=== PATIENT | female | born 1990 | race Caucasian/White ===

== ENCOUNTER 2023-04-22 15:03 | Outpatient (CLI) | payer OTHER, SELFPAY | END 2023-04-22 15:04 | disposition home or self-care (01) | LOC: NFLDREF 04-24 06:53 | PROVIDERS: Visit Provider Advanced Practice Midwife | DX: Z34.91 Encounter for supervision of normal pregnancy, unspecified, first trimester (principal); Z3A.08 8 weeks gestation of pregnancy | CPT/HCPCS: 76817; 84443; 86592; 86703; 86762; 86787; 86803; 86850; 86900; 86901; 87086; 87340 ==

== ENCOUNTER 2023-05-15 10:02 | Outpatient (CLI) | payer OTHER, SELFPAY | END 2023-05-15 10:03 | disposition home or self-care (01) | LOC: NFLDREF 05-16 10:54 | PROVIDERS: Visit Provider Advanced Practice Midwife | DX: Z34.01 Encounter for supervision of normal first pregnancy, first trimester (principal) | CPT/HCPCS: 87491; 87591 ==

== ENCOUNTER 2023-09-06 08:30 | Outpatient (CLI) | payer OTHER, SELFPAY | END 2023-09-06 08:31 | disposition home or self-care (01) | LOC: NFLDREF 09-13 09:18 | PROVIDERS: Visit Provider Advanced Practice Midwife | DX: Z34.90 Encounter for supervision of normal pregnancy, unspecified, unspecified trimester (principal) | CPT/HCPCS: 86592 ==

== ENCOUNTER 2023-10-02 07:21 | Outpatient (CLI) | payer OTHER, SELFPAY ==
--- NOTE | 2023-10-02 07:15 | CRLHL7_ITS ---
For Patients: As a result of the Century Cures Act, medical imaging exams and procedure reports are released immediately into your electronic medical record. You may view this report before your referring provider. If you have questions, please contact your health care provider. INDICATION: TECHNIQUE: Real time briseno scale imaging of the fetus was performed. COMPARISON: 04/22/2023 FINDINGS: Sonographic imaging demonstrates a single living intrauterine gestation. Fetus demonstrates a regular cardiac rate of 166 beats per minute. Fetus has a vertex position. The placenta lies anteriorly. Amniotic fluid volume appears normal and there is a single deepest pocket of 5.2 cm. The estimated weight is 2469gm which lies at the greater than 97th %. BPD 92nd percentile. HC 87th percentile. AC greater than 97th percentile. FL 15th percentile. The fetus was active and demonstrated normal breathing movements. There was normal flexion and extension of the trunk and extremities. IMPRESSION: Normal biophysical profile score 8/8. Sonographic gestational age 34 weeks 1 day and sonographic due date of 11/12/2023. Sonographic age 15 days ahead of the clinical age. Estimated weight greater than 97th percentile. Abdominal circumference greater than 97th percentile. Dictated by Reggie Mehta MD @ 10/02/2023 12:06:57 PM (Electronically Signed)
== END 2023-10-02 07:22 | disposition home or self-care (01) ==
LOC: US 07:22
PROVIDERS: Visit Provider Advanced Practice Midwife
DX: Z34.93 Encounter for supervision of normal pregnancy, unspecified, third trimester (principal); O36.63X0 Maternal care for excessive fetal growth, third trimester, not applicable or unspecified; Z3A.34 34 weeks gestation of pregnancy
CPT/HCPCS: 76816; 76819

== ENCOUNTER 2023-10-18 09:58 | Outpatient (CLI) | payer OTHER, SELFPAY ==
[2023-10-18] VITALS (22 sets, daily range): BP systolic 124–141; BP diastolic 61–79; PULSE 56–73; RESP 18; TEMP 37; O2SAT 93–98
[2023-10-18 11:24] LABS: Hematocrit 35.6 % (33.0-51.0); Hemoglobin* 11.9 gm/dL (12.0-16.0); Mean Corpuscular HGB Conc 33 gm/dL (32-36); Mean Corpuscular Hemoglobin 30 pg (26-34); Mean Corpuscular Volume 91 fL (80-100); Platelet Count* 231 K/uL (140-440); Red Blood Count 3.91 m/uL (4.00-5.20); White Blood Count* 9.64 K/uL (4.50-11.00)
[2023-10-18 11:44] LABS: Alanine Aminotransferase* 14 U/L (4-35); Aspartate Amino Transferase* 22 U/L (12-35); Creatinine* 0.5 mg/dL (0.5-1.5); Estimated Glomerular Filt Rate 125 ml/min; Slide Review Reflex No
[2023-10-18 12:01] LABS: Total Protein Urine 16 mg/dL
--- NOTE | 2023-10-18 12:36 | PM.OBLDTN ---
OB - Triage/Final Diagnosis Visit Information Date Seen: 10/18/23 Date of evaluation: 10/18/23 Narrative: The patient is a 33 year old 1 para 0 at 34.2 weeks gestation by LMP, who was seen in clinic today and sent to triage for further blood pressure monitoring for a BP of 140/86. In triage blood pressures were running 130/70's. Baseline preeclampsia labs all WNL except for TP ratio was 0.3. Diagnosed with preeclampsia without severe features at this time. Denies HOUGH, visual changes or abdominal pain today. Discussed diagnosis with patient and and plan moving forward. Will start biweekly testing next week and recommendation is induction of labor at 37.0 weeks as long as her blood pressure and lab work remains stable. Reviewed blood pressure parameters and s/s of preeclampsia to report. Patient will be sent home with a home blood pressure cuff as well. Questions answered, patient is agreeable to the plan of care. Reactive NST FHR 130, + accelerations, - decelerations, rare contractions. Reason for evaluation: other Evaluation Laboratory results: Laboratory Tests 10/18/23 10/18/23 Range/Units 11:30 11:17 WBC 9.64 (4.50-11.00) K/uL RBC 3.91 L (4.00-5.20) m/uL Hgb 11.9 L (12.0-16.0) gm/dL Hct 35.6 (33.0-51.0) % MCV 91 (80-100) fL MCH 30 (26-34) pg MCHC 33 (32-36) gm/dL Plt Count 231 (140-440) K/uL Creatinine 0.5 (0.5-1.5) mg/dL Estimated GFR 125 ml/min AST 22 (12-35) U/L ALT 14 (4-35) U/L Urine Creatinine 48.0 mg/dL Protein/Creatinin Ratio 0.30 H (0-0.19) Urine Total Protein 16 mg/dL Vital signs: Vital Signs - 24 hr 10/18/23 10:10 10/18/23 10:15 10/18/23 10:20 Temperature Pulse Rate Respiratory Rate Blood Pressure Pulse Oximetry 98 98 98 10/18/23 10:25 10/18/23 10:30 10/18/23 10:30 Temperature Pulse Rate 71 Respiratory Rate Blood Pressure 134/79 Pulse Oximetry 98 10/18/23 10:30 10/18/23 10:32 10/18/23 10:35 Temperature 98.6 F Pulse Rate Respiratory Rate 18 Blood Pressure Pulse Oximetry 98 97 10/18/23 10:40 10/18/23 10:40 10/18/23 10:40 Temperature Pulse Rate 64 Respiratory Rate Blood Pressure 137/71 Pulse Oximetry 97 10/18/23 10:45 10/18/23 10:50 10/18/23 10:50 Temperature Pulse Rate 60 Respiratory Rate Blood Pressure 135/68 Pulse Oximetry 97 10/18/23 10:50 10/18/23 10:55 10/18/23 11:00 Temperature Pulse Rate Respiratory Rate Blood Pressure 132/67 Pulse Oximetry 97 97 10/18/23 11:00 10/18/23 11:00 10/18/23 11:05 Temperature Pulse Rate 63 Respiratory Rate Blood Pressure Pulse Oximetry 97 97 10/18/23 11:10 10/18/23 11:10 10/18/23 11:10 Temperature Pulse Rate 64 Respiratory Rate Blood Pressure 131/68 Pulse Oximetry 93 10/18/23 11:10 10/18/23 11:15 10/18/23 11:20 Temperature Pulse Rate Respiratory Rate Blood Pressure 135/73 Pulse Oximetry 96 97 10/18/23 11:20 10/18/23 11:20 10/18/23 11:40 Temperature Pulse Rate 71 Respiratory Rate Blood Pressure 129/69 Pulse Oximetry 97 10/18/23 11:40 10/18/23 11:50 10/18/23 11:50 Temperature Pulse Rate 58 L 59 L Respiratory Rate Blood Pressure 124/61 Pulse Oximetry 10/18/23 12:00 10/18/23 12:00 10/18/23 12:10 Temperature Pulse Rate 56 L Respiratory Rate Blood Pressure 128/65 133/69 Pulse Oximetry 10/18/23 12:10 10/18/23 12:20 10/18/23 12:20 Temperature Pulse Rate 61 58 L Respiratory Rate Blood Pressure 140/71 H Pulse Oximetry 10/18/23 12:30 10/18/23 12:30 Temperature Pulse Rate 62 Respiratory Rate Blood Pressure 141/72 H Pulse Oximetry Final Diagnosis (1) Pre-eclampsia in third trimester: Status: Acute
--- NOTE | 2023-10-18 14:15 | PC.OBNST ---
NST Note NST Note Start: 10/18/23 10:22 Freq: ONCE Status: Active Protocol: Document 10/18/23 14:02 MMB (Rec: 10/18/23 14:15 MMB [id number]) NST Note 1 Para (# of births) 0 EDC 11/27/23 Gestational Age In Weeks & Days 34 Weeks & 2 Days High Risk Factors High Blood Pressure - Gestational Reactive Yes Appropriate for Gestational Age Yes RN Kirk Corrales RN Date 10/18/23 Reactive Yes Appropriate for Gestational Age Yes LEO Desai RN Date 10/18/23 OB NST charge Yes Complete NST Note via Write Note Yes The provider's electronic signature indicates the NST is reactive/appropriate for gestational age. *Note to provider: If an addendum is required, open the patient's chart and click on the note under the Nurse/Allied Health tab.
== END 2023-10-18 12:45 | disposition home or self-care (01) ==
LOC: OB OUT 09:59 → OB 09:59
PROVIDERS: Advanced Practice Midwife; Visit Provider Obstetrics & Gynecology
DX: O14.93 Unspecified pre-eclampsia, third trimester (principal)
CPT/HCPCS: 36415; 59025; 82565; 82570; 84156; 84450; 84460; 85027; 99213